=== PATIENT | female | born 1950 | race Caucasian/White ===

== ENCOUNTER → 2023-01-23 15:00 | Outpatient (BNVA) | payer MEDICARE, OTHER, SELFPAY | PROVIDERS: PCP Physician Assistant; Visit Provider Anesthesiology | DX: G89.4 Chronic pain syndrome (principal); M51.36 Other intervertebral disc degeneration, lumbar region; G89.29 Other chronic pain; M54.50 Low back pain, unspecified; G58.9 Mononeuropathy, unspecified | CPT/HCPCS: 99202 ==

== ENCOUNTER 2023-03-12 05:42 | Outpatient (REF) | payer MEDICARE, OTHER, SELFPAY ==
--- NOTE | ~2023-03-12 | FL_ITS ---
EXAMINATION: XR FLUOROSCOPY WITH IMAGES CLINICAL INFORMATION: Mononeuropathy. COMPARISON: None available. TECHNIQUE: Fluoroscopy Supervised By: Dr. Johann Paz. Fluoroscopy Time: 0.3 minutes. Cumulative Dose: 3.46 mGy. DAP: 0.943 Gy-cm2. Images: 5. FINDINGS: [place] and contrast are seen about the medial aspect of the left iliac crest. FL/FL guidance in treatment room IMPRESSION: Intraoperative fluoroscopy for pain management procedure.
== END 2023-03-12 05:43 | disposition home or self-care (01) ==
LOC: CF 05:42
PROVIDERS: Visit Provider Anesthesiology
DX: G89.4 Chronic pain syndrome (principal); M51.36 Other intervertebral disc degeneration, lumbar region; M54.50 Low back pain, unspecified
CPT/HCPCS: 64450; J2795

== ENCOUNTER → 2023-03-20 08:34 | Outpatient (BNVA) | payer MEDICARE, OTHER, SELFPAY | PROVIDERS: PCP Nurse Practitioner Family; Visit Provider Anesthesiology | DX: G58.9 Mononeuropathy, unspecified (principal); M51.36 Other intervertebral disc degeneration, lumbar region; M54.50 Low back pain, unspecified; G89.4 Chronic pain syndrome | CPT/HCPCS: Q3014 ==

== ENCOUNTER 2023-04-05 09:12 | Day surgery (SDC) | payer MEDICARE, OTHER, SELFPAY ==
[2023-04-02 14:24] VITALS: BMI 27.0
--- NOTE | 2023-04-04 09:47 | HO.ANESPROP2 ---
Documented by User: Erendira Person NP 04/04/23 09:49 HPI - Anesthesia Eval Consult details Narrative: 72yo F for Left Cluneal Nerve RFA Warfarin for ANTITHROMBIN III DEF (Hx of DVT) PMFSH Active Problems Active Problems: All Active Problems (Updated 04/04/23 @ 08:18 by Bri Richardson, RN) Mononeuropathy, unspecified (Acute) Disc degeneration, lumbar (Acute) Chronic pain syndrome (Acute) Chronic low back pain (Acute) HTN (hypertension) (Acute) Past Medical History Medical History (Updated 04/04/23 @ 08:18 by Bri Richardson, RN) Anxiety Blood coagulation disorder Chronic kidney disease Diverticulitis HTN (hypertension) Thromboembolic disorder Surgical History Surgical History (Updated 01/23/23 @ 15:46 by Octavia Echols RN) H/O laminectomy History of bowel resection History of colostomy reversal History of reversal of ileostomy Social History Social History Patient Tobacco Use Status: Never used Tobacco Second Hand Smoke Exposure: No Use of substances other than those prescribed or required for medical reasons: No Are you DNR?: No Advance Directives: No Advance Directives Information Provided: Yes Advance Directives on File: No Meds Allergies Allergy/AdvReac Type Severity Reaction Status Date / Time gabapentin AdvReac Mild Dizziness Verified 03/20/23 08:35 pregabalin [From Lyrica] AdvReac Mild Dizziness Verified 03/20/23 08:35 Home Medications Medication Instructions Recorded Confirmed Last Taken Type lorazepam 1 mg tablet 1 mg PO BID PRN Anxiety 01/23/23 04/05/23 Unknown History omeprazole 20 mg capsule,delayed 20 mg PO DAILY 01/23/23 04/05/23 Unknown History release tramadol 50 mg tablet 50 mg PO DAILY 01/23/23 04/05/23 Unknown History warfarin 4 mg tablet (Jantoven) 4 - 8 mg PO DAILY 01/23/23 04/05/23 Unknown History nirmatrelvir 150 mg-ritonavir 100 2 ea PO BID 04/04/23 04/05/23 Unknown History mg tablets in a dose pack (EUA) (Paxlovid) Exam Exam Date and Time: April 04, 2023 0947 Height,Weight and Vital Signs: Height 5 ft 1.5 in Weight 65.828 kg Assessment and Plan Assessment Anesthesia Assessment: Chart Reviewed Documented by User: Jerardo Estevez MD 04/05/23 13:51 PMFSH Past Medical History Medical History (Updated 04/04/23 @ 08:18 by Bri Richardson RN) Anxiety Blood coagulation disorder Chronic kidney disease Diverticulitis HTN (hypertension) Thromboembolic disorder Family History Family history of problems with anesthesia: No Surgical History Surgical History (Updated 01/23/23 @ 15:46 by Octavia Echols RN) H/O laminectomy History of bowel resection History of colostomy reversal History of reversal of ileostomy History of Problems with Anesthesia: No Social History Social History Patient Tobacco Use Status: Never used Tobacco Second Hand Smoke Exposure: No Use of substances other than those prescribed or required for medical reasons: No Are you DNR?: No Advance Directives: No Advance Directives Information Provided: Yes Advance Directives on File: No Meds Allergies Allergy/AdvReac Type Severity Reaction Status Date / Time gabapentin AdvReac Mild Dizziness Verified 03/20/23 08:35 pregabalin [From Lyrica] AdvReac Mild Dizziness Verified 03/20/23 08:35 Home Medications Medication Instructions Recorded Confirmed Last Taken Type lorazepam 1 mg tablet 1 mg PO BID PRN Anxiety 01/23/23 04/05/23 Unknown History omeprazole 20 mg capsule,delayed 20 mg PO DAILY 01/23/23 04/05/23 Unknown History release tramadol 50 mg tablet 50 mg PO DAILY 01/23/23 04/05/23 Unknown History warfarin 4 mg tablet (Jantoven) 4 - 8 mg PO DAILY 01/23/23 04/05/23 Unknown History nirmatrelvir 150 mg-ritonavir 100 2 ea PO BID 04/04/23 04/05/23 Unknown History mg tablets in a dose pack (EUA) (Paxlovid) Exam Airway Mallampati Class: I TM Dist: >3cm Neck ROM: Full Heart: ok Lungs: ok Assessment and Plan Assessment Anesthesia Assessment: Anesthesia Plan Discussed Final Anesthetic Review Family History of Problems with Anesthesia: No History of Problems with Anesthesia: No NPO: Yes ASA Class: III Final Preanesthetic Review: No Changes in Pt Med Stat, Meds/Allgs Chart Reviewed, Consent Obtained/Reviewed and Anes Risks/Benef Reviewed Patient Risk: Intermediate Procedure Risk: Intermediate Anesthetic Plan Anesthetic Plan: MAC: and Agree w/ Assess. and Plan Disposition: Standard PACU
--- NOTE | ~2023-04-05 | FL_ITS ---
EXAMINATION: XR FLUOROSCOPY WITH IMAGES CLINICAL INFORMATION: Cluneal nerve RFA COMPARISON: Fluoroscopic spot views 03/12/2023 TECHNIQUE: Fluoroscopy Supervised By: Dr. Johann Paz. Fluoroscopy Time: 0.8 minutes. Cumulative Dose: 5.83 mGy. DAP: 1.58 Gycm2. Images: 4. FINDINGS: There are 4 needles/electrodes overlying the superior aspect left iliac wing, grouped in 2 separate locations. There are surgical clips left lower quadrant abdomen. Bowel gas unremarkable. FL/FL guidance in OR IMPRESSION: Fluoroscopy for pain management procedures.
[2023-04-05 12:02] LABS: Prothrombin Time 11.2 SEC (10.0-13.1)
[2023-04-05 12:10] VITALS: BP 145/82; PULSE 81; RESP 16; TEMP 36.6; O2SAT 97
[2023-04-05] MEDS: Lactated Ringers 1,000 ML 100 ML IVCONT (12:24)
--- NOTE | 2023-04-05 13:18 | MHC.SHP ---
Pre-Procedural Eval Section A Date of Service: 04/05/23 The patient is an INPATIENT: No Changes since office visit: Yes Patient answered all questions The History & Physical has been completed within 30 days and I have reviewed it.: No Section B Chief Complaint: Mononeuropathy, Details of Present Illness: as above Relevant Family History (Specify if Yes): No Relevant Social History: None Present Medications: see Short Stay Collaborative assessment Medical History: No relevant PMH History of Previous Operations: No relevant previous surgery Allergies: Allergies Allergy/AdvReac Type Severity Reaction Status Date / Time gabapentin AdvReac Mild Dizziness Verified 03/20/23 08:35 pregabalin [From Lyrica] AdvReac Mild Dizziness Verified 03/20/23 08:35 Review of Systems Sugical H&P ROS: Negative: Constitution, Cardiovascular, Respiratory, Neurological, Psychiatric, Hem-Onc, Allergic/Immunologic, Gastrointestinal, Genitourinary, Musculoskeletal, Integumentary, Endocrine and Eyes/Ears/Nose/Throat Exam Surgical H&P Exam: Normal: HEENT, Normal: Heart, Normal: Lungs, Normal: Extremities, Normal: Abdomen, Normal: Skin and Normal: Neurological Plan Diagnosis/Plan: Unchanged I have reviewed the history and physical and performed a pertinent physical examination on my patient. No changes have occurred unless specified. Time Spent With Patient Time: Total time managing care of this patient today ____ minutes.
[2023-04-05 14:35] VITALS: BP 153/75; PULSE 69; RESP 16; TEMP 36.8; O2SAT 94
--- NOTE | 2023-04-05 14:40 | P.BOP_ITS ---
Brief Operative Note Date of Service: 04/05/23 Pre-op diagnosis: cluneal nerves neuropathy Post-op diagnosis: same Procedure: cluneal nerves RFA Surgeon: Johann Paz MD Anesthesia: MAC Was an Pet Adoption Counselor used for this Procedure?: No Estimated blood loss (mL): 9 Pathology: none sent Condition: stable Disposition: PACU
--- NOTE | 2023-04-05 14:41 | W.PM.OPN ---
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 She received successful cluneal nerve block with One hundred% pain alleviation for significant period of time. she came today to the operating room to receive left cluneal radiofrequency ablation. After explaining informed consent, risks and benefits as well as alternatives the patient was brought to the operating room and was positioned prone on the operating table. [employer] monitors were applied and patient was moderately sedated. Her lower back was prepped with ChloraPrep and draped with sterile utility towels. Time-out was performed delineating name and it of of the patient, need for DVT prophylaxis, need for antibiotics, risk of fire. C-arm was brought of the opting room and picture of the left leg crest was demonstrated on the screen. The point of interest were delineated as the points of anterior as well as medial iliac crest on the left 1 cm apart. The point of interest projection to the skin was injected with mixture of lidocaine 2% and ropivacaine 0.5% 1 cc. After that radiofrequency cannulas 100 mm long were inserted through the skin and were driven to were the point of interest. When needles gently contacted the bone the nitinol electrodes were inserted into the needles and motor stimulation was applied. At 2 milliamps there were no motor stimulation. After that the cannulas injected with mixture of lidocaine 2% and ropivacaine 0.5% with trace amount of organ it. The amount of the injectate was 15 cc. 80 seconds after energy applied to the cannulas at 89 degrees centigrade for 90 seconds. After that the needles rotated 180 degrees and energy application was repeated. Upon completion of the energy application the cannulas were removed and pressure was applied. Sterile dressing with Band-Aids were applied. The patient tolerated procedure well she went to PACU for recovery where she recovered uneventfully.
[2023-04-05 14:50] VITALS: BP 172/84; PULSE 75; RESP 14; TEMP 36.4; O2SAT 98
== END 2023-04-05 15:20 | disposition home or self-care (01) ==
PROVIDERS: Nurse Practitioner; PCP Nurse Practitioner Family; Visit Provider Anesthesiology
PROC: (CPT 64640; principal; 2023-04-05 11:10)
DX: G58.9 Mononeuropathy, unspecified (principal); G89.4 Chronic pain syndrome; M51.36 Other intervertebral disc degeneration, lumbar region; G89.29 Other chronic pain; M54.50 Low back pain, unspecified; I10 Essential (primary) hypertension; Z79.01 Long term (current) use of anticoagulants; Z79.899 Other long term (current) drug therapy; Z88.8 Allergy status to other drugs, medicaments and biological substances
CPT/HCPCS: 64640; 36415; 85610; J2795; J3010; J3301

== ENCOUNTER → 2023-05-08 10:19 | Outpatient (BNVA) | payer MEDICARE, OTHER, SELFPAY | PROVIDERS: PCP Nurse Practitioner Family; Visit Provider Anesthesiology | DX: G89.4 Chronic pain syndrome (principal); M51.36 Other intervertebral disc degeneration, lumbar region; G58.9 Mononeuropathy, unspecified; G89.29 Other chronic pain; M54.50 Low back pain, unspecified | CPT/HCPCS: 99212 ==